=== PATIENT | female | born 1950 | race Caucasian/White ===

== ENCOUNTER 2024-12-12 09:12 | Outpatient (CLI) | payer MEDICARE, OTHER, SELFPAY ==
--- NOTE | 2024-12-12 | EST_ITS ---
Patient Info Name: Conchita Pina Age: 74 years : 1950 Gender: Female Ht: 65 in Wt: 202 lbs BSA: 2.09 m2 HR: 69 bpm BP: 151 / 89 mmHg Exam Date: 12/12/2024 10:46 AM Exam Location: Echo Lab Patient Status: Outpatient Admit Date: 12/12/2024 Staff Ordering Physician: Jayson Walters MD Attending Provider: Jayson Walters MD Exercise Technologist: JULIANNE Diaz Exercise Physician: Rosas Carcamo DO Exam Type: CA stress arti w NM Study Info Indications R07.9 - Chest pain, unspecified A regadenoson stress test was performed. Summary 1. 1. Negative lexiscan stress test for ischemic ST changes by ECG criteria. 2. 2. Baseline hypertension. 3. 3. Nuclear scan to follow and will be reported separately. Please correlate with it. 4. 4. Patient informed of the above results. Protocol: Lexiscan Stress ECG Details Stage: REST Duration (min): 0 min : 42 sec HR (bpm): 69 SBP (mmHg): --- DBP (mmHg): --- Stage: REST Duration (min): 5 min : 29 sec HR (bpm): 76 SBP (mmHg): 151 DBP (mmHg): 89 Stage: STAGE 1 Duration (min): 1 min : 0 sec HR (bpm): 86 SBP (mmHg): 152 DBP (mmHg): 81 Stage: RECOVERY Duration (min): 0 min : 57 sec HR (bpm): 100 SBP (mmHg): 152 DBP (mmHg): 81 Rest HR: 76 bpm Peak HR: 100 bpm Rest Sys BP: 151 mmHg Peak Sys BP: 152 mmHg Max Pred HR: 147 bpm % Max Pred HR: 68 % Target HR: 125 bpm Max RPP: 15,200 bpm*mmHg Termination Reason: Completed protocol Cardiac Symptoms: Shortness of breath Total Time: 1 min : 0 sec Rest Parra BP: 89 mmHg Peak Parra BP: 81 mmHg Total Dose: 0.4 mg Resting ECG Sinus rhythm. Stress ECG No ST changes. Arrhythmias None. Report Signatures
--- NOTE | ~2024-12-12 | NM_ITS ---
EXAMINATION: NM arti stress w perfusion DATE: 12/12/2024 11:56 INDICATION: Chest pain. TECHNIQUE: Rest images were obtained following intravenous administration of 11.2 mCi Tc99m tetrofosm in (Myoview). The patient was infused intravenously with Lexiscan (regadenoson). Then, 34.6 mCi Tc99m tetrofosmin (Myoview) was administered intravenously, and stress images were obtained. Data was wojciech nstructed into short axis and horizontal and vertical long axis SPECT images. Gated SPECT images were also obtained. COMPARISON: None. FINDINGS: There is a small, mild, fixed perfusion defect involving apical to mid inferior wall of lef t ventricle, consistent with infarct. No reversible component to suggest ischemia. There is no segme ntal wall motion abnormality. Left ventricular ejection fraction measures >70%. IMPRESSION: 1. 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 2. Normal left ventricular ejection fraction measuring >70%. Reviewed, dictated and finalized at location L. IMPRESSION: 1. Small area of mild infarct involving apical to mid inferior wall of left kendra tricle. 2. Normal left ventricular ejection fraction measuring >70%.
--- OUTSIDE RECORDS SUMMARY | 2024-12-12 09:40 | XMS_ITS | Clinical Summary ---
Author Organization [facility] Address [address] [place] [id number] Care Team Providers Care Unit Tender Name Role Phone Jayson Walters MD Primary Care Provider [phone] Immunizations Name Administration Dates Next Due FLUAD (IIV, Trivalent, 0.5 M L Pre-filled Syringe) 06/23/2024 Fluzone High Dose - >Age 65 (Prefilled Syringe) 07/23/2022,07/04/2021,07/07/2020 Influenza Adult (Generic) 07/04/2021 Pneumococcal (Pneumovax 23) 07/04/2021 Social History Tobacco Use Types Packs/Day Years Used Date Smoking Tobacco: Former Cigarettes Smokeless Tobacco: Never Tobacco Cessation:Counseling Given: Not Answered Comments:Pt states she quit smoking in 2019. PHQ-2 Answer Date Recorded PHQ-2 Score - If the patient scores above 3, please move on to questions 3-9 0 04/19/2022 Comments Unknown Sex and Gender Information Value Date Recorded Sex Assigned at Not on file Legal Sex Female 10:09 PM [employer] Gender Identity Not on file Sexual Orientation Not on file Plan of Treatment Health Maintenance Due Date Last Done Comments Colorectal Cancer Screening Colonoscopy (10 Years) 1950 Hepatitis C 1969 DTaP, Tdap and Td Vaccines (1 - Tdap) 1970 Mammogram Screening 1991 Zoster Vaccines (1 of 2) 2001 Annual Medicare Wellness Visit 2016 Dexa Scan (General) 2016 Pneumococcal Vaccine: 65+ Years (2 of 2 - PCV) 07/04/2022 07/04/2021 COVID-19 Vaccine ( season) 2024 07/28/2022, 10/03/2021, 03/15/2021, Additional history exists RSV Immunization or 60+ Years (1 - 1-dose 75+ series) 2026 Influenza Adult Completed 06/23/2024, 07/02, 07/04/2021, Additional history exists Meningococcal B Vaccine Aged Out No l onger eligible based on patient's age to complete this topic Meningococcal Vaccine Aged Out No colin alcira eligible based on patient's age to complete this topic RSV Immunizations Under 20 Months Aged Out No longer eligible based on patient's age to complete this topic Insurance MEDICARE Results Address: [facility] [address] [place] [address] [employer] Care Teams Unit Tender Relationship Specialty Start Date End Date Jayson Walters MD [facility] [facility] [place] [id number] PCP - General FAMILY PRACTICE 04/27/22
== END 2024-12-12 09:13 | disposition home or self-care (01) ==
PROVIDERS: Visit Provider Family Medicine
DX: I21.19 ST elevation (STEMI) myocardial infarction involving other coronary artery of inferior wall (principal); I10 Essential (primary) hypertension
CPT/HCPCS: 78452; 93017; A9502

== ENCOUNTER 2025-02-16 12:57 | Outpatient (CLI) | payer MEDICARE, OTHER, SELFPAY ==
--- NOTE | ~2025-02-16 | US_ITS ---
EXAMINATION: US soft tissue head and neck DATE: 02/16/2025 13:12 INDICATION: Thyroid nodule TECHNIQUE: Multiple ultrasound images of the thyroid were obtained. COMPARISON: None. FINDINGS: The right thyroid lobe measures 3.8 x 1.4 x 1.0 cm. Within the right lobe of the thyroid gland is 7.3 x 7.1 x 6.0 mm nodule: Composition -solid or almost completely solid (2) Echogenicity - hypoechoic (2) Shape - wider than tall Margin - smooth Echogenic foci - none. = TR 4, moderately suspicious FNA if greater than or equal to 1.5 cm Follow if greater than or equal to 1 cm. The left thyroid lobe measures 1.9 x 1.3 x 0.7 cm. Within the left lobe of the thyroid gland is 4.6 x 4.7 x 5.7 mm nodule: Composition -solid or almost completely solid (2) Echogenicity - hypoechoic (2) Shape - wider than tall Margin - smooth Echogenic foci - none. = TR 4, moderately suspicious FNA if greater than or equal to 1.5 cm Follow if greater than or equal to 1 cm. The isthmus measures 0.4cm in anterior to posterior dimension. There is otherwise normal echotexture and echogenicity throughout the remainder of the thyroid gland. No additional discrete nodules identified. Normal vascular flow is present. IMPRESSION: Bilateral TR 4 nodules which do not meet size criteria for FNA or follow-up. While follow-up is not recommended, it may be performed at the discretion of the referring clinician. Reviewed, dictated and finalized at location A. IMPRESSION: Bilateral TR 4 nodules which do not meet size criteria for FNA or follow-up. While follow-up is not recommended, it may be performed at the discretion of e referring clinician.
== END 2025-02-16 12:58 | disposition home or self-care (01) ==
LOC: GOSHIMG 12:58
PROVIDERS: PCP Family Medicine; Visit Provider Family Medicine
DX: E04.2 Nontoxic multinodular goiter (principal)
CPT/HCPCS: 76536

== ENCOUNTER 2025-03-23 08:02 | Outpatient (CLI) | payer MEDICARE, OTHER, SELFPAY ==
--- NOTE | 2025-03-23 08:43 | ECHO_ITS ---
Patient Info Name: Conchita Pina Age: 74 years : 1950 Gender: Female Ht: 66 in Wt: 198 lbs BSA: 2.08 m2 HR: 73 bpm BP: 151 / 84 mmHg Technical Quality: Fair Exam Date: 03/23/2025 8:58 AM Patient Status: O Admit Date: 03/23/2025 Exam Type: CA echo doppler color flow Complete two-dimensional, color flow and Doppler transthoracic echocardiogram is performed. Strain analysis performed. Legal Manager: Ami Buitrago Attending Provider: Rosas Carcamo DO Summary 1. Complete two-dimensional, color flow and Doppler transthoracic echocardiogram is performed. 2. Left ventricular chamber dimension is normal. 3. Left ventricular systolic function is normal, estimated at 65-70. 4. The left ventricular diastolic function is grade I diastolic dysfunction. 5. Global longitudinal strain is abnormal at -15.6%. 6. E/e' 10 is mildly elevated. 7. The mitral valve has a mildly calcified annulus. 8. No pulmonary hypertension, estimated pulmonary arterial systolic pressure is 32 mmHg. 9. There is trivial pericardial effusion. Left Ventricle E/e' 10 is mildly elevated. Left ventricular chamber dimension is normal. Left ventricular systolic function is normal, estimated at 65-70. The left ventricular diastolic function is grade I diastolic dysfunction. Global longitudinal strain is abnormal at -15.6%. Right Ventricle Right ventricular chamber dimension is normal. Right ventricular systolic function is normal. Left Atria Left atrial chamber dimension is normal. Right Atria Right atrial chamber dimension is normal. Aortic Valve The aortic valve is trileaflet. There is no aortic valve stenosis. There is no aortic valve regurgitation. Pulmonic Valve There is no pulmonic regurgitation. Mitral Valve The mitral valve has a mildly calcified annulus. There is no mitral valve stenosis. There is no mitral valve regurgitation. Tricuspid Valve There is no tricuspid valve regurgitation. No pulmonary hypertension, estimated pulmonary arterial systolic pressure is 32 mmHg. Pericardium/Pleural There is trivial pericardial effusion. Inferior Vena Cava Normal inferior vena cava with >50% collapse upon inspiration consistent with normal right atrial pressure, 5 mmHg. Aorta The aortic root size at the sinus of Valsalva is normal. Left Ventricular Outflow Tract Name Value Normal LVOT 2D LVOT Diameter 1.9 cm LVOT Doppler LVOT Peak Velocity 103 cm/s LVOT Peak Gradient 4 mmHg LVOT Mean Gradient 2 mmHg LVOT VTI 18 cm LVOT VTI/AV VTI Ratio 0.9 LVOT Stroke Volume 53 ml LVOT CO 3.7 l/min LVOT CI 1.8 l/min/m2 Pulmonic Valve Name Value Normal RVOT Doppler RVOT Peak Velocity 78 cm/s RVOT Peak Gradient 2 mmHg PV Doppler PV Peak Velocity 91 cm/s PV Peak Gradient 3 mmHg Mitral Valve Name Value Normal MV Diastolic Function MV E Peak Velocity 63 cm/s MV A Peak Velocity 95 cm/s MV E/A 0.7 MV Decel Time (PW) 200 ms Tricuspid Valve Name Value Normal TV Regurgitation Doppler TR Peak Velocity 260 cm/s TR Peak Gradient 27 mmHg Estimated PAP/RSVP RA Pressure 5 mmHg <=5 PA Systolic Pressure 32 mmHg <36 RV Systolic Pressure 32 mmHg <36 TV Annular TDI TV Lateral Jeni s' Velocity 11.5 cm/s >=9.5 Aorta Name Value Normal Ascending Aorta Ao Root Diameter (MM) 3.3 cm Ao Root Diam Index (MM) 1.6 cm/m2 Aortic Valve Name Value Normal AV Doppler AV Peak Velocity 117 cm/s AV Peak Gradient 6 mmHg AV Mean Gradient 3 mmHg AV VTI 20 cm AV Area (Cont Eq VTI) 2.6 cm2 >=3.0 AV Area (Cont Eq Aubrey) 2.5 cm2 AV DI (Aubrey) 0.88 AV Regurgitation 2D LVOT Area 2.9 cm2 Ventricles Name Value Normal LV Dimensions 2D/MM IVS Diastolic Thickness (2D) 1.0 cm 0.6-1.0 IVS Diastole Thickness (MM) 1.4 cm 0.6-0.9 LVID Diastole (2D) 4.3 cm 3.8-5.2 LVID Diastole (MM) 4.4 cm 3.8-5.2 LVIW Diastolic Thickness (2D) 0.9 cm 0.6-0.9 LVIW Diastolic Thickness (MM) 1.4 cm 0.6-0.9 LVID Systole (2D) 2.6 cm 2.2-3.5 LVID Systole (MM) 2.5 cm 2.2-3.5 LVOT Diameter 1.9 cm LV Mass (2D Cubed) 125.34 g 67.00-162.00 LV Mass Index (2D Cubed) 60 g/m2 43-95 Relative Wall Thickness (2D) 0.41 <=0.42 LV Mass (MM Cubed) 242.37 g 67.00-162.00 LV Mass Index (MM Cubed) 117 g/m2 43-95 Relative Wall Thickness (MM) 0.64 LV Fractional Shortening/Ejection Fraction 2D/MM LV Fractional Shortening (2D) 38 % 27-45 LV Fractional Shortening (MM) 45 % 27-45 LV EF (MM Teichholz) 76 % LV EF (2D Teichholz) 68 % LV Diastolic Volume (4C MOD) 53 ml LV EF (4C MOD) 65 % LV Diastolic Volume (2C MOD) 36 ml LV EF (2C MOD) 70 % LV Diastolic Volume (BP MOD) 44 ml 46-106 LV Diastolic Volume Index (BP MOD) 21 ml/m2 29-61 LV Systolic Volume (BP MOD) 14 ml 14-42 LV Systolic Volume Index (BP MOD) 7 ml/m2 8-24 LV EF (BP MOD) 68 % 54-74 LV Diastolic Length (4C) 7.0 cm LV Systolic Length (4C) 5.4 cm LV Stroke Volume (4C MOD) 34 ml Atria Name Value Normal LA Dimensions LA Dimension (MM) 3.2 cm 2.7-3.8 LA Volume (4C A-L) 27 ml LA Volume (BP A-L) 27 ml RA Dimensions RA Systolic Major [place] Length (4C) 3.6 cm 2.2-2.8 RA Area (4C) 8.6 cm2 <=18.0 EchoPAC Name Value Normal AutoEF LVCO_BiP_Q (Tzyf9EUM) 2.8 l/min LVEF_BiP_Q (Ujfq4FFO) 65 % LVSV_BiP_Q (Bbge0VOG) 40 ml LVVED_BiP_Q (Juqh5WRM) 61 ml LVVES_BiP_Q (Ynoa7JFD) 22 ml HR_4Ch_Q (Ausu5RYN) 70 bpm LVCO_4Ch_Q (Nmtb5ZTP) 2.7 l/min LVEF_4Ch_Q (Rufm9MZR) 62 % LVLd_4Ch_Q (Drax0TEQ) 7.5 cm LVLs_4Ch_Q (Dcpo6VBS) 6.4 cm LVSV_4Ch_Q (Qgsp6SJY) 39 ml LVVED_4Ch_Q (Dvxi6NUR) 62 ml LVVES_4Ch_Q (Qfzb0ARR) 23 ml HR_2Ch_Q (Yvcq8HZT) 72 bpm LVCO_2Ch_Q (Owdt0QZS) 2.8 l/min LVEF_2Ch_Q (Xdtp8QVV) 67 % LVLd_2Ch_Q (Wdgv1KWJ) 7.1 cm LVLs_2Ch_Q (Pofk9SWS) 5.7 cm LVSV_2Ch_Q (Bmgi0XNJ) 39 ml LVVED_2Ch_Q (Jidw4HIZ) 59 ml LVVES_2Ch_Q (Ubyd3ISI) 20 ml SIRENA LV Apical Anterior Longitudinal Strain (SIRENA) -20.8 % LV Apical Anteroseptal Longitudinal Strain (SIRENA) -27.5 % LV Apical Inferior Longitudinal Strain (SIRENA) -30.1 % LV Apical Lateral Longitudinal Strain (SIRENA) -17.6 % LV Apical Posterior Longitudinal Strain (SIRENA) -17.9 % LV Apical Septal Longitudinal Strain (SIRENA) -20.4 % AV Closure (SIRENA) 351 ms LV Basal Anterior Longitudinal Strain (SIRENA) -13.7 % LV Basal Anteroseptal Longitudinal Strain (SIRENA) -18.4 % LV Basal Inferior Longitudinal Strain (SIRENA) -13.7 % LV Basal Anterolateral Longitudinal Strain (SIRENA) -9.8 % LV Basal Inferolateral Longitudinal Strain (SIRENA) 11.5 % LV Basal Inferoseptal Longitudinal Strain (SIRENA) -11.8 % LV Global Longitudinal Strain (2C SIRENA) -18.6 % LV Global Longitudinal Strain (4C SIRENA) -14.5 % LV Global Longitudinal Strain (APLAX SIRENA) -13.7 % LV Global Longitudinal Strain (SIRENA) -15.6 % LV Mid Anterior Longitudinal Strain (SIRENA) -14.4 % LV Mid Anteroseptal Longitudinal Strain (SIRENA) -28.0 % LV Mid Inferior Longitudinal Strain (SIRENA) -22.8 % LV Mid Anterolateral Longitudinal Strain (SIRENA) -12.4 % LV Mid Inferolateral Longitudinal Strain (SIRENA) -6.4 % LV Mid Inferoseptal Longitudinal Strain (SIRENA) -20.1 % Report Signatures
== END 2025-03-23 08:03 | disposition home or self-care (01) ==
LOC: ANHCARD 08:04
PROVIDERS: PCP Family Medicine; Visit Provider Internal Medicine Cardiovascular Disease
DX: R93.1 Abnormal findings on diagnostic imaging of heart and coronary circulation (principal); R06.09 Other forms of dyspnea
CPT/HCPCS: 93306